=== PATIENT | female | born 1980 | race Caucasian/White ===

== ENCOUNTER 2018-01-23 20:15 | Emergency (ER) | payer OTHER ==
[~2018-01-23] VITALS: Ht 172.7 cm; Wt 60.5 kg
[2018-01-23 20:19] VITALS: BP 152/91; PULSE 102; RESP 20; TEMP 98.8; O2SAT 100
[2018-01-23] MEDS ORDERED: LANTUS2P SQ (20:29)
[2018-01-23] MEDS ORDERED: HUMALOG SQ (20:29)
--- NOTE | 2018-01-23 20:39 | PD ---
HPI Chief Complaint: Complaint Time Seen by Provider: 20:25 Travel History International Travel<30 days: No Contact w/Intl Traveler<30days: No Traveled to known affect area: No History of Present Illness HPI 38-year-old female with PMH of T2 DM presents the ED for evaluation of vaginal spotting and elevated blood glucose. LMP mid November. Patient states that she had a urine test and ultrasound in December that revealed intrauterine , but was too early to date the age. She states that she had a light pink discharge yesterday, spotting throughout the course of the day. She states that she passed a small piece of rubbery tissue. She also complains of elevated blood glucose. She states that she took 30 units of lispro at this morning. She does not recall her blood glucose upon awakening but states "it was not high." She denies chest pain, coughing, shortness of breath, abdominal pain, nausea, vomiting, dysuria. PFSH Past Medical History Diabetes: Yes Patient Takes Glucophage: No Tetanus Vaccination: Unknown Influenza Vaccination: No ?: Unknown : 3 Para: 2 Past Surgical History Genitourinary Surgery: Yes (LEFT OVARY AND FALOPIAN TUBE REMOVAL) Other Surgery: Yes (POLYP REMOVAL, LYMPH NODE REMOVAL) Social History Alcohol Use: No Tobacco Use: Yes (2-3 CIG) Substance Use: No Allergies-Medications (Allergen,Severity, Reaction): Coded Allergies: No Known Allergies (Unverified , 01/23/18) Reported Meds & Prescriptions Reported Meds & Active Scripts Active Reported Lantus Inj (Insulin Glargine) 100 Unit/Ml Inj 10 SQ HS Humalog Inj (Insulin Human Lispro) 1,000 Unit/10 Ml Vial 30 Units SQ BID Review of Systems Except as stated in HPI: all other systems reviewed are Neg Physical Exam Narrative GENERAL: Well-nourished, well-developed female no acute distress per SKIN: Focused skin assessment warm/dry. HEAD: Normocephalic. EYES: No scleral icterus. No injection or drainage. NECK: Supple, trachea midline. No JVD or lymphadenopathy. CARDIOVASCULAR: Regular rate and rhythm without murmurs, gallops, or rubs. RESPIRATORY: Breath sounds equal bilaterally. No accessory muscle use. GASTROINTESTINAL: Abdomen soft, non-tender, nondistended. No suprapubic tenderness. Active bowel sounds. GENITOURINARY: Normal external genitalia without lesions or erythema. Vaginal vault drainage. Cervical os was open with blood clot emanating into the vaginal vault. No cervical motion tenderness. MUSCULOSKELETAL: No cyanosis, or edema. BACK: Nontender without obvious deformity. No CVA tenderness. Data Data Last Documented VS Vital Signs Date Time Temp Pulse Resp B/P (MAP) Pulse Ox O2 Delivery O2 Flow Rate FiO2 01/23/18 22:41 98 16 132/79 (96) 100 Room Air 01/23/18 20:19 98.8 Orders Orders Beta Hcg (Quant/Titer) (01/23/18 20:47) Complete Blood Count With Diff (01/23/18 20:47) Comprehensive Metabolic Panel (01/23/18 20:47) Complete Rh (01/23/18 20:47) Type And Screen (01/23/18 20:47) Urinalysis - C+S If Indicated (01/23/18 20:47) Iv Access Insert/Monitor (01/23/18 20:47) Ecg Monitoring (01/23/18 20:47) Ed Urine Pregnancytest Poc (01/23/18 20:47) Beta Hydroxybutyrate (Acetone) (01/23/18 20:47) Sodium Chlor 0.9% 1000 Ml Inj (Ns 1000 M (01/23/18 21:00) Us Pelvis (Ques Preg/Ectopic) (01/23/18 ) Gc And Chlamydia Pcr (01/23/18 21:51) Wet Prep Profile (01/23/18 21:51) Sodium Chlor 0.9% 1000 Ml Inj (Ns 1000 M (01/23/18 22:45) Blood Glucose (01/23/18 22:41) Labs Laboratory Tests Test 01/23/18 21:15 01/23/18 22:05 White Blood Count 7.6 TH/MM3 Red Blood Count 3.99 MIL/MM3 Hemoglobin 12.9 GM/DL Hematocrit 37.7 % Mean Corpuscular Volume 94.6 FL Mean Corpuscular Hemoglobin 32.3 PG Mean Corpuscular Hemoglobin Concent 34.2 % Red Cell Distribution Width 13.6 % Platelet Count 252 TH/MM3 Mean Platelet Volume 10.1 FL Neutrophils (%) (Auto) 69.5 % Lymphocytes (%) (Auto) 24.5 % Monocytes (%) (Auto) 3.8 % Eosinophils (%) (Auto) 1.7 % Basophils (%) (Auto) 0.5 % Neutrophils # (Auto) 5.3 TH/MM3 Lymphocytes # (Auto) 1.9 TH/MM3 Monocytes # (Auto) 0.3 TH/MM3 Eosinophils # (Auto) 0.1 TH/MM3 Basophils # (Auto) 0.0 TH/MM3 CBC Comment DIFF FINAL Differential Comment Urine Color YELLOW Urine Turbidity HAZY Urine pH 5.0 Urine Specific [place]r 1.037 Urine Protein NEG mg/dL Urine Glucose (UA) >=500 mg/dL Urine Ketones 80 OR GREATER mg/dL Urine Occult Blood LARGE Urine Nitrite NEG Urine Bilirubin NEG Urine Urobilinogen LESS THAN 2 mg/dL Urine Leukocyte Esterase NEG Urine RBC 3 /hpf Urine Squamous Epithelial Cells <1 /hpf Microscopic Urinalysis Comment CULT NOT INDICATED Blood Urea Nitrogen 15 MG/DL Creatinine 0.55 MG/DL Random Glucose 303 MG/DL Total Protein 7.1 GM/DL Albumin 3.3 GM/DL Calcium Level 8.3 MG/DL Alkaline Phosphatase 65 U/L Aspartate Amino Transf (AST/SGOT) 10 U/L Alanine Aminotransferase (ALT/SGPT) 19 U/L Total Bilirubin 0.5 MG/DL Sodium Level 135 MEQ/L Potassium Level 3.5 MEQ/L Chloride Level 102 MEQ/L Carbon Dioxide Level 20.1 MEQ/L Anion Gap 13 MEQ/L Estimat Glomerular Filtration Rate 125 ML/MIN Human Chorionic Gonadotropin, Quant 8614 MIU/ML B-Hydroxybutyrate 1.98 MMOL/L Clue Cells (Wet Prep) NONE SEEN Vaginal Trichomonas (Wet Prep) NONE SEEN Vaginal Yeast (Wet Prep) NONE SEEN MDM Medical Decision Making Medical Screen Exam Complete: Yes Emergency Medical Condition: Yes Differential Diagnosis Threatened versus incomplete versus vaginal bleeding in versus hyperglycemia versus HHS versus other Narrative Course 38-year-old female with PMH of DM presents to the ED for evaluation of 1 day history of vaginal bleeding. Patient describes this bleeding as spotting. She states that she passed a small piece of tissue today. She does not have an [employer]. States that she had an transvaginal ultrasound and outside hospital that confirmed intrauterine but was too early to date. Also states her blood glucose has been elevated today. Vitals reviewed. Patient's hypertensive on presentation, this resolves in the exam room. On physical exam is a nontoxic-appearing female no acute distress. Abdominal exam is unremarkable. Pelvic exam reveals open cervical loss with blood clots emanating into the vaginal vault. Exam otherwise unremarkable. IV was established. Patient was administered 2 L normal saline. CBC: WBC 7.6. Hemoglobin 12.9. CMP: Blood glucose 303. Calcium 8.3. Albumin 3.3. BUN 15, creatinine 0.55. Anion gap 13 HCG quant: 8614. Beta hydroxybutyrate 1.98. UA: No culture indicated.' Wet prep negative. Serology pending. Transvaginal ultrasound pending. Plan to recheck blood glucose, patient signed out at end of shift. Disposition per Dr. Jackman. Bhavna Uriarte Jan 23, 2018 20:39
[2018-01-23] MEDS ORDERED: SODIUM CHLOR 0.9% 1000 ML INJ 1,000 ML IV ONE ×2 (21:00→22:45)
[2018-01-23 21:52] LABS: AUTOMATED NEUTROPHIL # 5.3 TH/MM3 (1.8-7.7); BASOPHIL % 0.5 % (0.0-2.0); EOSINOPHIL # 0.1 TH/MM3 (0-0.4); EOSINOPHIL % 1.7 % (0.0-4.0); HEMATOCRIT 37.7 % (35.0-46.0); HEMOGLOBIN 12.9 GM/DL (11.6-15.3); LYMPH % 24.5 % (9.0-44.0); LYMPHOCYTE # 1.9 TH/MM3 (1.0-4.8); MEAN CELL VOLUME 94.6 FL (80.0-100.0); MEAN CORPUSCULAR HEMOGLOBIN 32.3 PG (27.0-34.0); MEAN CORPUSCULAR HGB CONC 34.2 % (32.0-36.0); MEAN PLATELET VOLUME 10.1 FL (7.0-11.0); MONO % 3.8 % (0.0-8.0); MONOCYTE # 0.3 TH/MM3 (0-0.9); NEUT % 69.5 % (16.0-70.0); PLATELET COUNT 252 TH/MM3 (150-450); RED BLOOD COUNT 3.99 MIL/MM3 (4.00-5.30); RED CELL DISTRIBUTION WIDTH 13.6 % (11.6-17.2); WHITE BLOOD COUNT 7.6 TH/MM3 (4.0-11.0)
[2018-01-23 22:06] LABS: BILIRUBIN, URINE NEG (NEG); BLOOD, URINE LARGE (NEG); GLUCOSE,URINE >=500 mg/dL (NEG); KETONE, URINE 80 OR GREATER mg/dL (NEG); NITRITE,URINE NEG (NEG); SQUAMOUS EPITHELIAL CELL URINE <1 /hpf (0-5); URINE COLOR YELLOW (YELLW/STRAW); URINE LEUKOCYTE ESTERASE NEG (NEG)
[2018-01-23 22:14] LABS: ALBUMIN 3.3 GM/DL (3.4-5.0); AST (GOT) 10 U/L (15-37); BICARBONATE 20.1 MEQ/L (21.0-32.0); BLOOD UREA NITROGEN 15 MG/DL (7-18); CALCIUM 8.3 MG/DL (8.5-10.1); CHLORIDE 102 MEQ/L (98-107); CREATININE 0.55 MG/DL (0.50-1.00); GLOMERULAR FILTRATION RATE 125 ML/MIN (>89); GLUCOSE,RANDOM 303 MG/DL (74-106); SODIUM (NA) 135 MEQ/L (136-145)
[2018-01-23 22:16] LABS: ALT (GPT) 19 U/L (10-53)
[2018-01-23 22:32] LABS: ALKALINE PHOSPHATASE 65 U/L (45-117); TOTAL BILIRUBIN ADULT 0.5 MG/DL (0.2-1.0); TOTAL PROTEIN 7.1 GM/DL (6.4-8.2)
[2018-01-23 22:41] VITALS: BP 132/79; PULSE 98; RESP 16; O2SAT 100
--- NOTE | 2018-01-23 23:39 | RADRPT ---
EXAM DATE: 01/23/2018 11:22 PM EDT AGE/SEX: 38 years / Female INDICATIONS: Bleeding since yesterday. CLINICAL DATA: This is the patient's initial encounter. Patient reports that signs and symptoms have been present for 1 day and indicates a pain score of 2/10. MEDICAL/SURGICAL HISTORY: . . Left salping-oophorectomy. COMPARISON: No prior exams available for comparison. MEASUREMENTS: Uterus:__9.7 x 7.9 x 5.6 cm Endometrial Stripe:__15 mm Right Ovary:__ 3.2 x 2.5 x 2.5 cm Left Ovary:__ _ Surgically absent. FINDINGS: Uterus: The myometrium has homogeneous echotexture without mass. No IUP is identified. Small nabothi an cysts. Endometrial Stripe: Mild heterogeneity at 1.5 cm in width Right Ovary: Small functional cysts. Left Ovary: Surgically absent. Fluid: No free fluid. Other: CONCLUSION: 1. No intrauterine gestational sac is identified. The right ovary has a normal appearance. The left is surgically absent. Electronically signed by: Berny Leyva MD 01/23/2018 11:38 PM EDT
[2018-01-24] MEDS ORDERED: SODIUM CHLOR 0.9% 1000 ML INJ 1,000 ML IV ONE
--- NOTE | 2018-01-24 01:03 | PD ---
Physical Exam Date Seen by Provider: Jan 24, 2018 Time Seen by Provider: 01:00 Narrative pt has acidosis from hyperglycemia and lack of control of her glucose and she is given 3 rd liter of fluid and I want to repeat CHEM to assure the electrolytes have corrected and she refuses to Stay for labs , I explain that she needs to have her Beta HCG rechecked in 2 days , I explain that she has a US that shows an empty uterus and that it is worrisome for a misscarriagge pt agrees she needs to follow up as a outpt when she returns to [facility] Data Data Last Documented VS Vital Signs Date Time Temp Pulse Resp B/P (MAP) Pulse Ox O2 Delivery O2 Flow Rate FiO2 01/24/18 00:50 01/23/18 22:41 98 16 100 Room Air 01/23/18 20:19 98.8 Orders Orders Beta Hcg (Quant/Titer) (01/23/18 20:47) Complete Blood Count With Diff (01/23/18 20:47) Comprehensive Metabolic Panel (01/23/18 20:47) Complete Rh (01/23/18 20:47) Type And Screen (01/23/18 20:47) Urinalysis - C+S If Indicated (01/23/18 20:47) Iv Access Insert/Monitor (01/23/18 20:47) Ecg Monitoring (01/23/18 20:47) Ed Urine Pregnancytest Poc (01/23/18 20:47) Beta Hydroxybutyrate (Acetone) (01/23/18 20:47) Sodium Chlor 0.9% 1000 Ml Inj (Ns 1000 M (01/23/18 21:00) Us Pelvis (Ques Preg/Ectopic) (01/23/18 ) Gc And Chlamydia Pcr (01/23/18 21:51) Wet Prep Profile (01/23/18 21:51) Sodium Chlor 0.9% 1000 Ml Inj (Ns 1000 M (01/23/18 22:45) Blood Glucose (01/23/18 22:41) Sodium Chlor 0.9% 1000 Ml Inj (Ns 1000 M (01/24/18 00:00) Labs Laboratory Tests Test 01/23/18 21:15 01/23/18 22:05 White Blood Count 7.6 TH/MM3 Red Blood Count 3.99 MIL/MM3 Hemoglobin 12.9 GM/DL Hematocrit 37.7 % Mean Corpuscular Volume 94.6 FL Mean Corpuscular Hemoglobin 32.3 PG Mean Corpuscular Hemoglobin Concent 34.2 % Red Cell Distribution Width 13.6 % Platelet Count 252 TH/MM3 Mean Platelet Volume 10.1 FL Neutrophils (%) (Auto) 69.5 % Lymphocytes (%) (Auto) 24.5 % Monocytes (%) (Auto) 3.8 % Eosinophils (%) (Auto) 1.7 % Basophils (%) (Auto) 0.5 % Neutrophils # (Auto) 5.3 TH/MM3 Lymphocytes # (Auto) 1.9 TH/MM3 Monocytes # (Auto) 0.3 TH/MM3 Eosinophils # (Auto) 0.1 TH/MM3 Basophils # (Auto) 0.0 TH/MM3 CBC Comment DIFF FINAL Differential Comment Urine Color YELLOW Urine Turbidity HAZY Urine pH 5.0 Urine Specific [place] 1.037 Urine Protein NEG mg/dL Urine Glucose (UA) >=500 mg/dL Urine Ketones 80 OR GREATER mg/dL Urine Occult Blood LARGE Urine Nitrite NEG Urine Bilirubin NEG Urine Urobilinogen LESS THAN 2 mg/dL Urine Leukocyte Esterase NEG Urine RBC 3 /hpf Urine Squamous Epithelial Cells <1 /hpf Microscopic Urinalysis Comment CULT NOT INDICATED Blood Urea Nitrogen 15 MG/DL Creatinine 0.55 MG/DL Random Glucose 303 MG/DL Total Protein 7.1 GM/DL Albumin 3.3 GM/DL Calcium Level 8.3 MG/DL Alkaline Phosphatase 65 U/L Aspartate Amino Transf (AST/SGOT) 10 U/L Alanine Aminotransferase (ALT/SGPT) 19 U/L Total Bilirubin 0.5 MG/DL Sodium Level 135 MEQ/L Potassium Level 3.5 MEQ/L Chloride Level 102 MEQ/L Carbon Dioxide Level 20.1 MEQ/L Anion Gap 13 MEQ/L Estimat Glomerular Filtration Rate 125 ML/MIN Human Chorionic Gonadotropin, Quant 8614 MIU/ML B-Hydroxybutyrate 1.98 MMOL/L Clue Cells (Wet Prep) NONE SEEN Vaginal Trichomonas (Wet Prep) NONE SEEN Vaginal Yeast (Wet Prep) NONE SEEN Chlamydia trachomatis DNA (PCR) NOT DETECTED Neisseria gonorrhoeae DNA (PCR) NOT DETECTED [facility] Medical Record Reviewed: Yes Supervised Visit with TESS: Yes Narrative Course I explained to the patient the findings on her ultrasound that there was no sign of intrauterine and that most likely she passed the conception in the last few days and that it was a missed she seemed reluctant to accept this information and her boyfriend also seem reluctant to accept this information. I did explain to her that repeating the blood test in 2 days to measure the beta hCG. Her and her boyfriend are returning to [place] the [place] I tell him to go to the doctor and have a repeat hCG but I explained I would like to repeat her labs after her third liter fluid to correct her acidosis from her diabetic mismanagement they refused to stay for repeat chemistry eyewear that she still acidotic her acetone was positive and her CO2 on her chemistry was slightly acidotic and she had an anion gap of 13 which was mild but I wanted to repeat her chemistry to assure that she had corrected patient refused to stay and left AMA Diagnosis Primary Impression: Left against medical advice Additional Impression: Missed Patient Instructions: General Instructions Departure Forms: Tests/Procedures Disposition: 07 AGAINST MEDICAL ADVICE Condition: Stable Дмитрий Jackman MD Jan 24, 2018 01:03
== END 2018-01-24 00:55 | disposition left against medical advice (07) ==
LOC: NEPE 20:15
DX: O02.1 Missed abortion (principal); E11.65 Type 2 diabetes mellitus with hyperglycemia; F17.210 Nicotine dependence, cigarettes, uncomplicated; Z79.4 Long term (current) use of insulin
CPT/HCPCS: 76700; 80053; 81001; 82010; 84702; 84703; 85025; 86850; 86900; 86901; 87210; 87491; 87591; 96360; 96361; 99284; J7030